=== PATIENT | female | born 1945 | race Caucasian/White ===

== ENCOUNTER → 2017-08-17 | Outpatient (CLI) | payer MEDICARE, OTHER ==
--- NOTE | 2017-08-18 12:06 | MM ---
Reason for exam: screening (asymptomatic). Last mammogram was performed 3 years and 2 months ago. History: Patient is postmenopausal and has history of high-risk lesion on a previous biopsy at age 56. Family history of breast cancer in aunt. Excisional biopsy of the right breast, December 20, 2001. Physical Findings: A clinical breast exam by your physician is recommended on an annual basis and results should be correlated with mammographic findings. MG 3D Screening Mammo W/Cad Bilateral CC and MLO view(s) were taken. Prior study comparison: June 19, 2014, bilateral MG screening mammo w CAD. April 20, 2007, bilateral screening mammogram w/CAD. The breast tissue is heterogeneously dense. This may lower the sensitivity of mammography. Post surgical change right breast. ASSESSMENT: Benign, BI-RAD 2 RECOMMENDATION: Routine screening mammogram of both breasts in 1 year.
== END | disposition home or self-care (01) ==
LOC: RADMAMWWP 09:04
PROVIDERS: ATTEND Family Medicine
DX: Z12.31 Encounter for screening mammogram for malignant neoplasm of breast (principal)
CPT/HCPCS: 77063; 77067

== ENCOUNTER → 2018-08-09 | Outpatient (CLI) | payer MEDICARE, OTHER ==
[2018-08-09 08:33] LABS: Blood Urea Nitrogen 14 mg/dL (7-17)
--- NOTE | 2018-08-09 09:35 | CT ---
EXAMINATION TYPE: CT brain wo/w con DATE OF EXAM: 08/09/2018 COMPARISON: NONE HISTORY: Dizziness, feels like she is rocking CT DLP: 2172 mGycm Automated Exposure Control for Dose Reduction was Utilized. TECHNIQUE: CT scan of the head is performed with IV contrast.,CT scan of the head is performed withou t and with with IV Contrast, patient injected with 100 mL of Isovue 300. FINDINGS: Noncontrast images show no acute intracranial hemorrhage or midline shift. The ventricles and sulci are symmetrically mildly prominent compatible with age-related volume loss. This is propor tional to the patient's age. No suspicious extra axial fluid collection. There are few patchy scatter ed areas of hypoattenuation in the periventricular white matter, subtle. Postcontrast images show no suspicious enhancing intraparenchymal mass. The globes are intact and the visualized sinuses are clear. Right posterior calvarial bony exostosis is seen near the skull vertex . IMPRESSION: 1. No acute intracranial hemorrhage, midline shift or mass effect. No abnormal intracranial enhanceme nt. No evidence of intra-axial mass. 2. Paranasal sinuses and mastoid air cells are overall well aerated. Middle ear cavities also grossly appear well aerated. 3. Very mild periventricular nonspecific white matter change. MRI could more sensitively assess for w brittany matter change and lacunar injury.
--- NOTE | 2018-08-09 11:10 | US ---
EXAMINATION TYPE: US carotid duplex BILAT DATE OF EXAM: 08/09/2018 COMPARISON: NONE CLINICAL HISTORY: R42 Dizziness, R29 Rocking sensation. Patient states having a rocking sensation. H TN. No hx of TIA EXAM MEASUREMENTS: RIGHT: Peak Systolic Velocity (PSV) cm/sec ----- Right CCA: 66.7 ----- Right ICA: 81.1 ----- Right ECA: 88.8 ICA/CCA ratio: 1.2 RIGHT: End Diastole cm/sec ----- Right CCA: 16.1 ----- Right ICA: 26.0 ----- Right ECA: 12.8 LEFT: Peak Systolic Velocity (PSV) cm/sec ----- Left CCA: 84.4 ----- Left ICA: 73.0 ----- Left ECA: 84.4 ICA/CCA ratio: 0.9 LEFT: End Diastole cm/sec ----- Left CCA: 21.6 ----- Left ICA: 22.3 ----- Left ECA: 12.8 VERTEBRALS (direction of flow): Right Vertebral: Antegrade Left Vertebral: Antegrade Rhythm: Arrhythmia No wall thickening, elevated velocities, significant stenosis or plaque visualized. IMPRESSION: 1. No significant plaquing or flow limiting stenosis. Criteria for Assigning % of Stenosis / Diameter reduction (Estimation based on the indirect measurements of the internal carotid artery velocities (ICA PSV). 1. Normal (no stenosis)=ICA PSV < 125 cm/s: ratio < 2.0: ICA EDV<40 cm/s. 2. Less than 50% stenosis=ICA PSV < 125 cm/s: ratio < 2.0: ICA EDV<40 cm/s. 3. 50 to 69% stenosis=ICA PSV of 125 to 230 cm/s: ration 2.0 ? 4.0: ICA EDV 40-100 cm/s. 4. Greater than 70% stenosis to near occlusion= ICA PSV > 230 cm/s: ratio > 4.0: ICA EDV > 100 cm/s. 5. Near occlusion= ICA PSV velocities may be low or undetectable: variable ratio and ICA EDV. 6. Total occlusion=unable to detect flow.
== END | disposition home or self-care (01) ==
LOC: RADCTMAIN 08:02
PROVIDERS: ATTEND Family Medicine
DX: R42 Dizziness and giddiness (principal); R29.898 Other symptoms and signs involving the musculoskeletal system
CPT/HCPCS: 82565; 84520; 93880; 70470; 36415; Q9967

== ENCOUNTER → 2023-11-24 | Outpatient (CLI) | payer MEDICARE, OTHER ==
--- NOTE | 2023-11-24 16:06 | US ---
EXAMINATION TYPE: US kidneys/renal and bladder DATE OF EXAM: 11/24/2023 COMPARISON: NONE CLINICAL INDICATION: Female, 78 years old with history of R31.9 HEMATURIA; Microscopic hematuria; pat ient denies any other signs, symptoms, or relevant history EXAM MEASUREMENTS: Right Kidney: 10.0 x 4.7 x 5.4 cm Left Kidney: 12.9 x 5.0 x 5.3 cm Post Void Residual Volume: NA mL Right Kidney: wnl Left Kidney: Simple cyst noted lower pole Bladder: wnl Bilateral Jets seen: Yes Normal Post Void Residual: NA There is no evidence for hydronephrosis at this point in time. No nephrolithiasis is seen. No jose s are identified. The urinary bladder is anechoic. Bilateral ureteral jets are seen. IMPRESSION: No evidence for obstructive uropathy. Simple appearing cyst in the left kidney. No calculi definitive ly visualized.
== END | disposition home or self-care (01) ==
LOC: RADUSWWP 15:29
PROVIDERS: ATTEND Family Medicine
DX: N28.1 Cyst of kidney, acquired (principal); R31.9 Hematuria, unspecified
CPT/HCPCS: 76770